=== PATIENT | female | born 2000 | race Hispanic/Latino ===

== ENCOUNTER → 2025-02-01 | Emergency (ER) | payer MEDICAID ==
[~2025-02-01] VITALS: Ht 162.6 cm; Wt 60.8 kg
[2025-02-01 16:04] VITALS: BP 118/79; PULSE 108; RESP 18; TEMP 98.6
--- NOTE | 2025-02-01 16:20 | ERN ---
ED Note History of Present Illness Stated Complaint: FLU Chief Complaint: Flu Symptoms Time Seen by MD: 16:06 Dictation: A 24-YEAR-OLD FEMALE COMING IN TODAY WITH COMPLAINTS OF SORE THROAT, PAINFUL SWALLOWING AND FLU-LIKE SYMPTOMS FOR THE LAST 3-4 DAYS. NO NAUSEA VOMITING NO DIARRHEA NO VAGINAL BLEEDING NO PELVIC CONTRACTIONS. SHE STATES SHE IS FIVE MONTHS , . HER HAND UMBRELLA TIPPER DOCTORS DR. JAMI GUZMAN, SHE SPOKE TO HER TWO DAYS AGO AND WAS PRESCRIBED A Z-AMADOU. PATIENT DID NOT START THE Z-AMADOU BECAUSE SHE WAS FEARFUL OF ALL THE SIDE EFFECTS WHEN SHE GOOGLE AZITHROMYCIN. IN ADDITION SHE SAID SHE CAN NOT TAKE TYLENOL BECAUSE IT CAUSES AUTISM Allergies: Coded Allergies: No Known Drug Allergies (Unverified Allergy, Unknown, 02/01/25) Past Medical History Past Medical History: Other Additional Past Medical Hx: PRE-CLAMPSIA Surgical History: None History: Not Applicable : 2 Para: 1 Aborts: 0 RN Note Reviewed/Agreed w/PFSH: Yes Review of System Dictation CONSTITUTIONAL: NEGATIVE EXCEPT FOR HPI FEVER CHILLS HEAD/FACE: NEGATIVE EXCEPT FOR HPI EENT: NEGATIVE EXCEPT FOR HPI CLEAR RHINITIS WITH SORE THROAT AND PAINFUL SWALLOWING RESPIRATORY: NEGATIVE EXCEPT FOR HPI GASTROINTESTINAL/ABDOMINAL: NEGATIVE EXCEPT FOR HPI GENITOURINARY: NEGATIVE EXCEPT FOR HPI MUSCULOSKELETAL: NEGATIVE EXCEPT FOR HPI INTEGUMENTARY: NEGATIVE EXCEPT FOR HPI NEUROLOGICAL/PSYCH: NEGATIVE EXCEPT FOR HPI HEMATOLOGIC/LYMPHATIC: NEGATIVE EXCEPT FOR HPI ALL SYSTEMS NEGATIVE, EXCEPT NOTED ABOVE. 13 POINT REVIEW OF SYSTEMS ASSESSED AND ALL NEGATIVE EXCEPT FOR ABOVE. Initial Vital Sign VS Vital Signs Date Time Temp Pulse Resp B/P (MAP) Pulse Ox O2 Delivery O2 Flow Rate FiO2 02/01/25 16:04 98.6 108 18 118/79 98 Room Air 0 Physical Exam Dictation VITAL SIGNS REVIEWED GENERAL APPEARANCE: ALERT, ORIENTED X 3, N MILD ACUTE DISTRESS, WELL DEVELOPED, NOURISHED. HEAD AND FACE: NON-TRAUMATIC. EYES: PERRL, PINK CONJUNCTIVAS, EYELID NO TRAUMA, ANTERIOR CHAMBER WITH ARCUS SE NILIS. EARS: PINNAS INTACT AND NO SIGNS OF TRAUMA OR ERYTHEMA EAR CANALS CLEAR AND NO DISCHARGE TM NO ERYTHEMA NOSE: N CLEAR DISCHARGE, NO BLEEDING. OROPHARYNX: MOUTH MILD PHARYNGEAL ERYTHEMA, TONSILS NO EXUDATES, NO ABSCESSES NOTED, MUCOUS MEMBRANE MOIST UVULA MIDLINE, VOICE IS CLEAR NECK: SUPPLE, NON-TENDER, NO THYROMEGALY, NO MASSES, NO JVD, NO BRUITS BREAST:DEFERRED CHEST:NO TENDERNESS, NO CREPITUS, NO PARADOXICAL MOVEMENT, NO RETRACTIONS LUNGS:CLEAR, WELL-VENTILATED, SYMMETRIC, NO RALES, NO WHEEZING, NO RHONCHI, NO STRIDOR, GOOD BREATH SOUNDS BILATERALLY HEART: REGULAR RATE, REGULAR RHYTHM, NO MURMUR, NO GALLOPS VASCULAR: NO PERIPHERAL EDEMA, ABDOMEN: SOFT, POSITIVE BOWEL SOUNDS, NONDISTENDED, NO GUARDING, NONTENDER, NO REBOUND, NO MASSES NO HEPATOMEGALY, NO SPLENOMEGALY, NO HUANG'S SIGN, NO HERNIAS. RECTAL: DEFERRED GENITAL: DEFERRED NEUROLOGICAL: NORMAL SPEECH, MOTOR FUNCTION INTACT, SENSORY FUNCTION INTACT MUSCULOSKELETAL: NECK NONTENDER, FULL RANGE OF MOTION, BACK NONTENDER, FULL RANGE OF MOTION, EXTREMITIES: NONTENDER, FULL RANGE OF MOTION SKIN: COLOR PINK, DRY, NO TURGOR, NO RASH, NO LACERATIONS, NO ABRASIONS, NO CONTUSIONS. LYMPHATIC: DEFERRED Results (Laboratory/Radiology) Laboratory/Radiology Laboratory Tests Test 02/01/25 16:05 Influenza Type A Antigen Positive For Type A Influenza Type B Antigen Negative For Type B SARS-CoV-2, RNA, NAAT NEGATIVE SARS CoV-2 Group A Streptococcus Rapid negative (NEGATIVE) Labs Reviewed?: Yes ED Course ED Course Orders Procedure Category Date Status Time Covid Rna Naat LAB 02/01/25 Complete 16:07 Influenza Type A & B, LAB 02/01/25 Complete Rapid 16:07 Rapid (Group A Strep) LAB 02/01/25 Complete 16:07 *Nursing CPOE 02/01/25 Transmitted Communication: 16:20 Vital Signs Date Time Temp Pulse Resp B/P (MAP) Pulse Ox O2 Delivery O2 Flow Rate FiO2 02/01/25 16:04 98.6 108 18 118/79 98 Room Air 0 1700 ALYSSA RN IN ROOM WITH THE EXAM. HEART TONES 162 PATIENT IS AWARE THAT SHE IS POSITIVE FOR INFLUENZA A SHE WAS INFORMED THE CATEGORY IS C. SHE SAID SHE HAS NOT WANT ANY TREATMENT FOR THIS. SHE SAID SHE WILL SEE DR. JAMI GUZMAN TOMORROW Medical Decision Making MDM MEDICAL DISCHARGE MAKING BASED ON SWABS FOR FLU COVID AND STREP. PATIENT FIVE MONTHS GRAVID WITH A HEART TONES 162 POSITIVE FOR INFLUENZA A PATIENT IS REFUSING ALL MEDICATIONS TO INCLUDE TYLENOL DUE TO THE RISKS SHE HAS READ ABOUT ON GOOGLE DX & DISP Disposition: Discharge Departure Impression: Primary Impression: Influenza A Additional Impression: and not yet delivered in second trimester Condition: Stable Additional Instructions: FOLLOW-UP WITH PRIMARY CARE PROVIDER IN 1 TO 2 DAYS. TAKE MEDICATIONS DIRECTED HERE IN THE EMERGENCY ROOM. OKAY TO CONTINUE HOME MEDICATIONS UNLESS OTHERWISE DISCUSSED DURING YOUR VISIT IN THE EMERGENCY ROOM TODAY. RETURN TO YOUR NEAREST EMERGENCY ROOM IF SYMPTOMS WORSEN OR IF THERE IS NO IMPROVEMENT. CALL 911 IF YOU NEED IMMEDIATE ASSISTANCE. TAKE TYLENOL OR MOTRIN [id number] NEEDED AND IF NO CONTRAINDICATIONS ARE PRESENT. INCREASE ORAL HYDRATION. A WOUND CULTURE OR URINE CULTURE WAS ORDERED HERE IN THE EMERGENCY ROOM DEPARTMENT PLEASE FOLLOW-UP WITH PRIMARY CARE PROVIDER AND ADVISE THEM TO GET REPEAT PORTS FROM OUR FACILITY. IF YOU HAD ANY RACQUEL WRAP/SPLINTS THAT WERE APPLIED HERE, PLEASE DO NOT REMOVE THEM UNTIL YOU SEE YOUR PRIMARY CARE OR SPECIALTY. INCREASE YOUR FLUID INTAKE. SEE DR. JAMI GUZMAN TOMORROW AND MAKE HER AWARE THAT YOU HAVE INFLUENZA A BY SWABS ADDITIONALLY THE YOU WANT NO MEDICATIONS THAT ARE NOT CATEGORY A DRUGS. ADDITIONALLY, LET HER KNOW THAT YOU DID NOT START THE AZITHROMYCIN. Time of Disposition: 16:59 I have reviewed the case, and I agree with, Diagnosis and Plan GERMAN NUNN Feb 01, 2025 16:20
[2025-02-01 16:29] LABS: INFLUENZA TYPE B Negative For Type B (NEGATIVE)
[2025-02-01 16:32] LABS: INFLUENZA TYPE A Positive For Type A (NEGATIVE)
[2025-02-01 16:35] LABS: SARS-CoV-2, RNA, NAAT NEGATIVE SARS CoV-2 (NEGATIVE)
[2025-02-01 16:40] LABS: RAPID GROUP A STREP negative (NEGATIVE)
== END ==
LOC: EDH 16:02
DX: O99.512 Diseases of the respiratory system complicating pregnancy, second trimester (principal); J10.1 Influenza due to other identified influenza virus with other respiratory manifestations; Z20.822 Contact with and (suspected) exposure to COVID-19; Z3A.20 20 weeks gestation of pregnancy
CPT/HCPCS: 87635; 87804; 87880; 99283